=== PATIENT | female | born 1995 | race Caucasian/White ===

== ENCOUNTER 2016-10-17 09:10 | Emergency (ER) | payer SELFPAY ==
[~2016-10-17] VITALS: Wt 60.0 kg
[2016-10-17 10:25] LABS: URINE BLOOD (Dip) POC Trace-intact (NEGATIVE)
--- NOTE | 2016-10-17 10:33 | RADRPT ---
PROCEDURE: OBSTETRICAL ULTRASOUND WITH ENDOVAGINAL IMAGES CLINICAL INDICATION: Vaginal Bleed () TECHNIQUE: Multiple sonographic images of the pelvis were obtained utilizing a transabdominal and endovaginal technique. The images were reviewed on a PACS workstation. COMPARISON: None. LMP: 08/09/2016 FINDINGS: The uterus measures 8.0 x 4.3 x 5.6 cm. There is a tiny oval fluid collection in the endocervical canal at the level of the fundal apex niya uring 6 x 1 mm which may be an early gestational sac. No yolk sac or pole is identified withi n it. The right ovary measures 3.5 x 2.0 x 1.9 cm. The left ovary measures 2.8 x 2.2 x 2.6 cm. There is no rmal vascular flow in both ovaries. No significant ovarian lesions are seen. No significant pelvic free fluid is identified. IMPRESSION: A possible intrauterine gestational sac is identified although it is oval in shape rather than round . No yolk sac or pole is identified within it and thus an ectopic cannot be exclude d. Short-term follow-up ultrasound and serial Beta HCG measurements are recommended for further doug luation. Bilateral ovaries and adnexa are unremarkable. RPTAT: EE Physician Dony Date Time Electronically viewed and signed by Physician Dony on 10/17/2016 10:33 /
[2016-10-17 11:33] LABS: BASOPHILS % 0.6 % (0.0-2.0); EOSINOPHILS # 0.1 10^3/ul (0.0-0.5); EOSINOPHILS % 1.1 % (0.0-7.0); HEMATOCRIT 38.4 % (37.0-47.0); HEMOGLOBIN 13.2 g/dl (12.0-16.0); LYMPHOCYTES # 2.6 10^3/ul (0.8-2.9); LYMPHOCYTES % 41.4 % (15.0-51.0); MEAN CORPUSCULAR HEMOGLOBIN 32.4 pg (29.0-33.0); MEAN CORPUSCULAR HGB CONC 34.5 g/dl (32.0-37.0); MEAN CORPUSCULAR VOLUME 93.9 fl (82.0-101.0); MEAN PLATELET VOLUME 9.9 fl (7.4-10.4); MONOCYTE # 0.4 10^3/ul (0.3-0.9); MONOCYTES % 5.8 % (0.0-11.0); NEUTROPHIL # 3.1 10^3/ul (1.6-7.5); NEUTROPHILS % 51.1 % (39.0-77.0); PLATELET COUNT 273 10^3/UL (140-440); RED BLOOD COUNT 4.09 10^6/ul (4.20-5.40); RED CELL DISTRIBUTION WIDTH 12.3 % (11.5-14.5); UNCORRECTED WBC 6.2 10^3/ul (4.8-10.8); WHITE BLOOD COUNT 6.2 10^3/ul (4.8-10.8)
[2016-10-17 11:37] LABS: CONDITION 1
--- NOTE | 2016-10-17 13:29 | ERD ---
ER Documentation Chief Complaint Date/Time DATE: 10/17/16 TIME: 13:27 Chief Complaint 8 WKS PREG VAG BLEED FOR 1 WK. MILD ABD PAIN HPI Patient is a 20-year-old female with no medical problems who presents with abdominal pain and bleeding. She had heavy bleeding and last night she passed a sac. She said that it looks like a small fetus that she passed from her vagina. She did have an ultrasound done on 31 August. She said her last mental period was July 31. Upon review of old medical records this is the patient's first visit to the emergency department. ROS All systems reviewed and are negative except as per history of present illness. Allergies Allergies: Coded Allergies: No Known Allergy (Unverified , 10/17/16) PMhx/Soc Medical and Surgical Hx: pt denies Medical Hx, pt denies Surgical Hx History of Surgery: No Anesthesia Reaction: No Hx Neurological Disorder: No Hx Respiratory Disorders: No Hx Cardiac Disorders: No Hx Psychiatric Problems: No Hx Miscellaneous Medical Probl: No Hx Alcohol Use: Yes (socially) Hx Substance Use: No Hx Tobacco Use: No Smoking Status: Never smoker FmHx Family History: No diabetes Physical Exam Vitals Vital Signs Date Time Temp Pulse Resp B/P Pulse Ox O2 Delivery O2 Flow Rate FiO2 10/17/16 09:14 98.5 73 20 120/61 98 Physical Exam Const: No acute distress Head: Atraumatic Eyes: Normal Conjunctiva ENT: Normal External Ears, Nose and Mouth. Neck: Full range of motion..~ No meningismus. Resp: Clear to auscultation bilaterally Cardio: Regular rate and rhythm, no murmurs Abd: Soft, non tender, non distended. Normal bowel sounds Skin: No petechiae or rashes Back: No midline or flank tenderness Ext: No cyanosis, or edema Neur: Awake and alert Psych: Normal Mood and Affect Result Diagram: 10/17/16 1100 Results 24 hrs Laboratory Tests Test 10/17/16 10:27 10/17/16 11:00 Bedside Urine Blood Trace-intact Bedside Urine Glucose (UA) Negative Bedside Urine Ketones (LAB) Negative Bedside Urine Leukocyte Esterase (L Negative Bedside Urine Nitrite (LAB) Negative Bedside Urine Protein (LAB) Negative Bedside Urine pH (LAB) 7.0 Basophils # 0.010^3/ul Basophils % 0.6% Beta HCG, Quantitative < 2.4mIU/ml Eosinophils # 0.110^3/ul Eosinophils % 1.1% Hematocrit 38.4% Hemoglobin 13.2g/dl Lymphocytes # 2.610^3/ul Lymphocytes % 41.4% Mean Corpuscular Hemoglobin 32.4pg Mean Corpuscular Hemoglobin Concent 34.5g/dl Mean Corpuscular Volume 93.9fl Mean Platelet Volume 9.9fl Monocytes # 0.410^3/ul Monocytes % 5.8% Neutrophils # 3.110^3/ul Neutrophils % 51.1% Nucleated Red Blood Cells # 0.010^3/ul Nucleated Red Blood Cells % 0.0/100WBC Platelet Count 26554^3/UL Red Blood Count 4.0910^6/ul Red Cell Distribution Width 12.3% White Blood Count 6.210^3/ul Procedures/MDM PROCEDURE: OBSTETRICAL ULTRASOUND WITH ENDOVAGINAL IMAGES CLINICAL INDICATION: Vaginal Bleed () TECHNIQUE: Multiple sonographic images of the pelvis were obtained utilizing a transabdominal and endovaginal technique. The images were reviewed on a PACS workstation. COMPARISON: None. LMP: 08/09/2016 FINDINGS: The uterus measures 8.0 x 4.3 x 5.6 cm. There is a tiny oval fluid collection in the endocervical canal at the level of the fundal apex measuring 6 x 1 mm which may be an early gestational sac. No yolk sac or pole is identified within it. The right ovary measures 3.5 x 2.0 x 1.9 cm. The left ovary measures 2.8 x 2.2 x 2.6 cm. There is normal vascular flow in both ovaries. No significant ovarian lesions are seen. No significant pelvic free fluid is identified. IMPRESSION: A possible intrauterine gestational sac is identified although it is oval in shape rather than round. No yolk sac or pole is identified within it and thus an ectopic cannot be excluded. Short-term follow-up ultrasound and serial Beta HCG measurements are recommended for further evaluation. Bilateral ovaries and adnexa are unremarkable. RPTAT: EE Physician Dony Date Time Electronically viewed and signed by Parish Farhat, Physician on 10/17/2016 10:33 Patient is a 20-year-old female presents with vaginal bleeding. Her test in the blood is negative and at this point I doubt or ectopic . I believe outpatient management is appropriate. I believe the patient most likely had a spontaneous . The patient can return for any worsening symptoms. I do not believe she requires further workup or admission to the hospital at this time. I will give her information for Dr. Cruz from OB or she could follow-up with the OB doctor of her choice. She can return sooner for any worsening symptoms. Departure Diagnosis: Primary Impression: , spontaneous Condition: Fair Patient Instructions: Miscarriage, Spontaneous (Completed) Referrals: LEISA GARCIA MD Additional Instructions: Llame al doctor MAANA y martin yogesh MATEO PARA DENTRO DE 1-2 FRIEDMAN.Dgale a la secretaria que nosotros le instruimos hacer esta mateo.Avise o llame si munoz condicin se empeora antes de la mateo. Regresa aqui si peor o no mejor. AC BARKER MD Oct 17, 2016 13:28
== END 2016-10-17 14:11 | disposition home or self-care (01) ==
LOC: FTE 09:10
DX: O03.9 Complete or unspecified spontaneous abortion without complication (principal); R10.2 Pelvic and perineal pain
CPT/HCPCS: 36415; 76801; 76817; 81003; 84702; 85025; 86900; 86901

== ENCOUNTER 2019-04-04 17:44 | Emergency (ER) | payer SELFPAY ==
[~2019-04-04] VITALS: Ht 160 cm; Wt 66.7 kg
[~2019-04-04 17:44] MED LIST: IBUP-1542 PO
[2019-04-04 18:02] VITALS: Ht 160 cm; Wt 66.7 kg
[2019-04-04] MEDS ORDERED: ACETAMINOPHEN 325 MG TAB PO ONE (19:30)
[2019-04-04 21:45] VITALS: BP 123/67; PULSE 70; RESP 17
--- NOTE | 2019-04-05 12:34 | ERD ---
ER Documentation Chief Complaint Chief Complaint vaginal spotting, pelvic cramping, lower back pain - LMP 01/07/19 HPI This is a 23-year-old female reportedly 12 weeks presenting to the emergency department complaining of vaginal bleeding which began today. She is G3, with last menstrual cycle of 01/07/2019. She reports suprapubic cramping which is intermittent, 7/10 severity, without exacerbating or alleviating factors. She denies any other symptoms at this time. ROS All systems reviewed and are negative except as per history of present illness. Allergies Allergies: Coded Allergies: No Known Allergy (Unverified , 10/17/16) PMhx/Soc Medical and Surgical Hx: pt denies Medical Hx, pt denies Surgical Hx History of Surgery: No Anesthesia Reaction: No Hx Neurological Disorder: No Hx Respiratory Disorders: No Hx Cardiac Disorders: No Hx Psychiatric Problems: No Hx Miscellaneous Medical Probl: No Hx Alcohol Use: Yes (socially) Hx Substance Use: No Hx Tobacco Use: No Smoking Status: Never smoker FmHx Family History: No diabetes Physical Exam Vitals Vital Signs Date Temp Pulse Resp B/P (MAP) Pulse Ox O2 O2 Flow FiO2 Time Delivery Rate 04/04/19 98.4 70 17 123/67 99 Room Air 21:45 (85) 04/04/19 98.9 72 20 131/60 98 18:02 (83) Physical Exam Const: No acute distress Head: Atraumatic Eyes: Normal Conjunctiva ENT: Normal External Ears, Nose and Mouth. Neck: Full range of motion. No meningismus. Resp: Clear to auscultation bilaterally Cardio: Regular rate and rhythm, no murmurs Abd: Soft, non tender, non distended. Normal bowel sounds. No rebound t enderness or guarding. No McBurney's point tenderness. No suprapubic tenderness. Skin: No petechiae or rashes Back: No midline or flank tenderness Ext: No cyanosis, or edema Neur: Awake and alert Psych: Normal Mood and Affect Result Diagram: 04/04/19200604/04/192006 Results 24 hrs Laboratory Tests Test 04/04/19 20:07 White Blood Count 10.7 10^3/ul Red Blood Count 3.82 10^6/ul Hemoglobin 12.3 g/dl Hematocrit 34.6 % Mean Corpuscular Volume 90.6 fl Mean Corpuscular Hemoglobin 32.2 pg Mean Corpuscular Hemoglobin Concent 35.5 g/dl Red Cell Distribution Width 11.4 % Platelet Count 289 10^3/UL Mean Platelet Volume 10.7 fl Immature Granulocytes % 0.300 % Neutrophils % 58.1 % Lymphocytes % 34.2 % Monocytes % 6.2 % Eosinophils % 0.8 % Basophils % 0.4 % Nucleated Red Blood Cells % 0.0 /100WBC Immature Granulocytes # 0.030 10^3/ul Neutrophils # 6.2 10^3/ul Lymphocytes # 3.7 10^3/ul Monocytes # 0.7 10^3/ul Eosinophils # 0.1 10^3/ul Basophils # 0.0 10^3/ul Nucleated Red Blood Cells # 0.0 10^3/ul Urine Color YELLOW Urine Clarity TURBID Urine pH 7.0 Urine Specific [place] 1.012 Urine Ketones NEGATIVE mg/dL Urine Nitrite NEGATIVE mg/dL Urine Bilirubin NEGATIVE mg/dL Urine Urobilinogen NEGATIVE mg/dL Urine Leukocyte Esterase NEGATIVE Dima/ul Urine Microscopic RBC 1 /HPF Urine Microscopic WBC 0 /HPF Urine Amorphous Crystals FEW /HPF Urine Bacteria FEW /HPF Urine Hemoglobin NEGATIVE mg/dL Urine Glucose NEGATIVE mg/dL Urine Total Protein NEGATIVE mg/dl Sodium Level 140 mmol/L Potassium Level 4.0 mmol/L Chloride Level 102 mmol/L Carbon Dioxide Level 29 mmol/L Anion Gap 9 Blood Urea Nitrogen 8 mg/dl Creatinine 0.49 mg/dl Est Glomerular Filtrat Rate mL/min > 60 mL/min Glucose Level 95 mg/dl Calcium Level 10.3 mg/dl Total Bilirubin 0.2 mg/dl Direct Bilirubin 0.00 mg/dl Indirect Bilirubin 0.2 mg/dl Aspartate Amino Transf (AST/SGOT) 34 IU/L Alanine Aminotransferase (ALT/SGPT) 62 IU/L Alkaline Phosphatase 89 IU/L Total Protein 8.2 g/dl Albumin 5.0 g/dl Globulin 3.20 g/dl Albumin/Globulin Ratio 1.56 Beta HCG, Quantitative 61477.0 mIU/ml Current Medications Medications Dose Sig/Heath Start Time Status Last (Trade) Ordered Route PRN Stop Time Admin Dose Reason Admin 650 mg ONCE ONCE 04/04/19 DC 04/04/19 Acetaminophen PO 19:30 04/04/19 20:10 (Tylenol 19:31 Tab) [place] [address] Radiology Main Line: [phone] DIAGNOSTIC IMAGING REPORT Patient: TERRI RHOADES : 1995 Age: 23 Sex: F MR #: [id number] DOS: 04/04/19 1929 Ordering MD: KARYN GARZA PA-C Location: [facility] Room/Bed: PROCEDURE: US Pelvis/OB. CLINICAL INDICATION: vaginal bleeding TECHNIQUE: Multiple sonographic images of the pelvis were obtained utilizing a transabdominal and endovaginal technique. The images were reviewed on a PACS workstation. COMPARISON: None. FINDINGS: There is a small cystic structure within the endometrium measuring 1.7 cm which would correspond to a calculated gestational age of 6 weeks and 3 days. No pole or yolk sac is yet visualized. There is debris noted within the gestational sac. There is a 3.8 x 2.9 x 0.9 cm complex hypoechoic area adjacent to the gestational sac. There is normal Doppler flow in the ovaries. The right ovary measures 3.0 x 2.3 x 2.0 cm. There is a 1.5 cm hemorrhagic cyst in the right ovary. The left ovary measures 2.4 1.7 x 1.6 cm. No significant free fluid is present within the pelvis. RPTAT: AA IMPRESSION: Gestational sac noted within the uterus, corresponding to a gestational age of 6 weeks and 3 days. No pole or yolk sac is yet visualized. Moderate area of subchorionic hemorrhage. The findings are suspicious for a nonviable . Small hemorrhagic cyst in the right ovary. Close followup ultrasound and hCG is recommended. .Rosales Morales MD, MD Date Time Electronically viewed and signed by .Rosales Morales MD, MD on 04/04/2019 20:15 .S/ CC: KARYN GARZA PA-C [phone] Procedures/MDM This is a 23-year-old female presenting to the emergency department compla ining of intermittent vaginal bleeding. Patient had stable vital signs and she was hemodynamically stable. CBC showed no evidence of significant leukocytosis or anemia. Chemistry panel was within normal limits. Beta hCG was 10,081. Urinalysis showed no evidence of urinary tract infection. Obstetrics ultrasound was suspicious for a nonviable . The full report interpreted by the radiologist may be viewed above. Patient should have 24 to 48-hour follow-up with her [facility] physician and return here immediately for any new or worsening or concerning symptoms. She is otherwise stable for discharge and further outpatient follow-up. Patient is in agreement with the diagnosis, plan, need for follow-up, return precautions. Departure Diagnosis: Primary Impression: Vaginal bleeding in patient at less than 20 weeks ges... Condition: Fair Patient Instructions: Bleeding During Early Referrals: [facility] ted se carroll hecho un examen mdico de control que le indica que no est en yogesh condicin que requiera tratamiento urgente en el Departamento de Emergencia. Un estudio ms profundo y el tratamiento de foote condicin pueden esperar sin ningn riesgo hasta que usted sea atendida/o en el consultorio de foote mdico o yogesh clnica. Es responsabilidad suya arreglar yogesh kyara para el seguimiento del carolina. MANEJO DE CONDICIONES NO URGENTES EN EL FUTURO 1) Si usted tiene un mdico de atencin primaria: Usted debera llamar a foote mdico de atencin primaria antes de venir al departamento de emergencia. Despus de las horas de consultorio, foote doctor o foote asociado/a est disponible por telfono. El mdico o enfermero de irene en el servicio telefnico puede asesorarle por vaibhav medio para atender el problema, o carolina contrario se puede programar yogesh kyara. 2) Si usted no tiene un mdico de atencin primaria: Llame al mdico o clnica de referencia que aparece abajo marcelle las horas de consultorio para hacer yogesh kyara para que le vean. CLINICAS: [facility] [phone] [facility] [phone] [facility] [phone] [facility] [phone] [facility] [place] [address] [phone] [facility] [phone] [place] [facility] [place] [address] [facility] [address] [place] [address] OFFICE FAX , [facility] [address] [place], [place] [id number] [address] [facility] [address] [place] [address] [address], [facility] [address] [facility] [facility] [address] [address] [facility] [address] [place] [address] [facility] [address] [place] [address] [address] [facility] [address] [address], [facility] [address] [address] [address] [facility]. [address], [facility] [address] [address], [facility] [address] [place], [place] [phone] Additional Instructions: Specialist:Usted tiene yogesh condicin mdica que requiere que james a un especialista dentro de los prximos 1-2 krueger.POR FAVOR,CON FOOTE SEGUIMIENTO DE PRIMARIA PHSICIAN refferal. SI USTED NO TIENE UN MDICO GENERAL Y / O USTED NO PUEDE PAGAR jeni a un mdico,los siguientes mckinney RECURSOS sido suministrado a usted. ES FOOTE RESPONSABILIDAD PARA SER VISTOS POR EL ESPECIALISTA: KARYN CARRILLO PA-C Apr 05, 2019 12:34
== END 2019-04-04 21:45 | disposition home or self-care (01) ==
LOC: FTE 17:44
DX: O20.9 Hemorrhage in early pregnancy, unspecified (principal); R10.2 Pelvic and perineal pain; O26.891 Other specified pregnancy related conditions, first trimester; Z3A.01 Less than 8 weeks gestation of pregnancy
CPT/HCPCS: 36415; 76801; 76817; 80053; 81001; 84702; 85025; 86900; 86901

== ENCOUNTER 2019-04-12 19:39 | Emergency (ER) | payer MEDICAID ==
[~2019-04-12] VITALS: Ht 160 cm; Wt 67.4 kg
[2019-04-12 20:06] VITALS: BP 126/61; PULSE 80; RESP 20; Ht 160 cm; Wt 67.4 kg
== END 2019-04-12 22:48 | disposition home or self-care (01) ==
LOC: FTE 19:39
DX: O20.9 Hemorrhage in early pregnancy, unspecified (principal); R10.2 Pelvic and perineal pain; Z3A.01 Less than 8 weeks gestation of pregnancy
CPT/HCPCS: 36415; 76801; 76817; 81001; 84702; 85025

== ENCOUNTER 2019-04-13 00:11 | Emergency (ER) | payer MEDICAID ==
[~2019-04-13] VITALS: Ht 160 cm; Wt 66.2 kg
[2019-04-13 00:16] VITALS: BP 135/52; PULSE 96; RESP 19; Ht 160 cm; Wt 66.2 kg
[2019-04-13] MEDS ORDERED: IBUPROFEN 600 MG TAB PO ONE (01:00)
--- NOTE | 2019-04-13 01:22 | ERD ---
ER Documentation Chief Complaint Chief Complaint STATES WORSENING VB X1 HR, D/C'D ABOUT 1HR AGO HPI This is a 23-year-old female presenting to the emergency department complaining of increased vaginal bleeding for the past 1 hour. She was here approximately 2 hours ago and seen by myself and I diagnosed her with spontaneous . Patient was advised to return for increased vaginal bleeding and that is why she is coming in now. I did recommend for repeat ultrasound at this time to verify that patient had passed the fetus. She is declining at this time. She is just requesting pain medication and would like to follow-up with her [employer] physician tomorrow. No other symptoms reported at this time. ROS All systems reviewed and are negative except as per history of present illness. Medications Home Meds Active Scripts Ibuprofen* (Motrin*) 600 Mg Tab, 600 MG PO Q6, #30 TAB Prov:KARYN GARZA PA-C 04/12/19 Allergies Allergies: Coded Allergies: No Known Allergy (Unverified , 10/17/16) PMhx/Soc History of Surgery: No Anesthesia Reaction: No Hx Neurological Disorder: No Hx Respiratory Disorders: No Hx Cardiac Disorders: No Hx Psychiatric Problems: No Hx Miscellaneous Medical Probl: No Hx Alcohol Use: Yes (socially) Hx Substance Use: No Hx Tobacco Use: No FmHx Family History: No diabetes Physical Exam Vitals Vital Signs Date Temp Pulse Resp B/P (MAP) Pulse Ox O2 O2 Flow FiO2 Time Delivery Rate 04/13/19 98.8 96 19 135/52 99 00:16 (79) Physical Exam Const: No acute distress Head: Atraumatic Eyes: Normal Conjunctiva ENT: Normal External Ears, Nose and Mouth. Neck: Full range of motion. No meningismus. Resp: Clear to auscultation bilaterally Cardio: Regular rate and rhythm, no murmurs Abd: Soft, non tender, non distended. Normal bowel sounds. No rebound tende rness or guarding. No McBurney's point tenderness. No suprapubic tenderness to palpation. Skin: No petechiae or rashes Back: No midline or flank tenderness Ext: No cyanosis, or edema Neur: Awake and alert Psych: Normal Mood and Affect Results 24 hrs Current Medications Medications Dose Sig/Heath Start Time Status Last (Trade) Ordered Route PRN Stop Time Admin Dose Reason Admin Ibuprofen 600 mg ONCE ONCE 04/13/19 DC 04/13/19 (Motrin) PO 01:00 00:56 04/13/19 01:01 Procedures/MDM 23-year-old female is presenting to the emergency department requesting pain medication for pelvic pain secondary to spontaneous . Patient was also apparently passing large blood clots at home. It is likely that the patient passed the fetus. She is requesting pain medication and was administered ibuprofen with improvement of her symptoms. I did recommend for repeat ultrasound to verify that the patient had passed the fetus, however she declined and states she has an appointment with her [employer] physician tomorrow morning and would like to follow-up there. She states the reason for her visit at this time was solely for pain medication. Patient is stable and appropriate for discharge and further outpatient management. No evidence to suggest ectopic , tubo-ovarian abscess, ovarian torsion, or other emergent process. Patient advised to return immediately for any new or worsening or concerning symptoms. Departure Diagnosis: Primary Impression: Spontaneous Condition: Fair Patient Instructions: Miscarriage Additional Instructions: Call your primary care doctor TOMORROW for an appointment during the next 1-2 days.See the doctor sooner or return here if your condition worsens before your appointment time. KARYN GARZA PA-C Apr 13, 2019 01:22
== END 2019-04-13 01:28 | disposition home or self-care (01) ==
LOC: FTE 00:11
DX: O03.9 Complete or unspecified spontaneous abortion without complication (principal)
CPT/HCPCS: Z7502; Z7610; 99282